=== PATIENT | female | born 1945 | race Caucasian/White ===

== ENCOUNTER 2020-05-13 08:35 | Outpatient (CLI) | payer MEDICARE | END 2020-05-13 23:59 | disposition home or self-care (01) | LOC: CARD 08:35 | PROVIDERS: ATTEND Psychiatry & Neurology Neurology | DX: J98.8 Other specified respiratory disorders (principal) | CPT/HCPCS: 94010 ==

== ENCOUNTER → 2020-05-29 | Outpatient (CLI) | payer MEDICARE | END | disposition home or self-care (01) | LOC: RAD 09:36 | PROVIDERS: ATTEND Psychiatry & Neurology Neurology | DX: R13.19 Other dysphagia (principal) | CPT/HCPCS: 74230 ==